=== PATIENT | female | born 1950 | race African-American/Black ===

== ENCOUNTER 2022-11-25 13:53 | Emergency (ER) | payer BC, MEDICAID ==
[~2022-11-25] VITALS: Ht 170.2 cm; Wt 129.3 kg
[2022-11-25] MEDS ORDERED: MORPHINE SULFATE 4 MG/ML CPJ (NOT FOR IM USE) IV STA (14:21)
[2022-11-25] MEDS ORDERED: ONDANSETRON HCL 4MG/2ML INJ IV STA (14:21)
[2022-11-25] MEDS ORDERED: SODIUM CHLORIDE 0.9% 1,000 ML IV ONE (14:30)
[2022-11-25 15:07] LABS: BASOPHILS % 0.5 % (0.0-2.0); EOSINOPHILS % 0.6 % (0.0-5.0); HEMATOCRIT. 33.9 % (36.0-48.0); HEMOGLOBIN. 10.9 g/dL (12.0-16.0); LYMPHOCYTES % 10.8 % (20.0-50.0); MEAN CORPUSCULAR HEMOGLOBIN 27.9 pg (28.0-32.0); MEAN CORPUSCULAR VOLUME 86.8 fL (81.0-99.0); MEAN PLATELET VOLUME 7.4 fl (7.4-10.4); MONOCYTES % 6.5 % (2.0-8.0); NEUTROPHILS % 81.6 % (40.0-76.0); PLATELET 299 x1000/uL (130-400); RED CELL DISTRIBUTION WIDTH 15.1 % (11.6-14.6)
[2022-11-25 15:15] LABS: CHLORIDE 111 mEq/L (98-107)
[2022-11-25] MEDS ORDERED: MORPHINE SULFATE 4 MG/ML CPJ (NOT FOR IM USE) IV SCH (16:30)
[2022-11-25] MEDS ORDERED: ONDANSETRON HCL 4MG/2ML INJ IV SCH (16:45)
[2022-11-25] MEDS ORDERED: TRAM50TA3 PO (17:04)
[2022-11-25] MEDS ORDERED: IBUP-2028 MT (17:04)
[2022-11-25 18:55] VITALS: BP 146/91
== END 2022-11-25 19:22 | disposition home or self-care (01) ==
LOC: ER 13:53
DX: R53.1 Weakness (principal); Z88.8 Allergy status to other drugs, medicaments and biological substances; W07.XXXA Fall from chair, initial encounter; Y93.89 Activity, other specified; Y92.018 Other place in single-family (private) house as the place of occurrence of the external cause
CPT/HCPCS: 36415; 70450; 71045; 72131; 72192; 80053; 82962; 83880; 84484; 85025; 93005; 93970; 96361; 96374; 96375; 99285; J2270; J2405; J7030